=== PATIENT | male | born 1955 | race Caucasian/White ===

== ENCOUNTER 2017-04-27 11:51 | Emergency (ER) | payer OTHER ==
[2017-04-27 12:05] VITALS: O2SAT 96
--- NOTE | 2017-04-27 12:32 | CPEKG ---
Heart Rate: 67 RR Interval: 896 P-R Interval: 184 QRSD Interval: 104 QT Interval: 424 QTC Interval: 448 P [place]: 75 QRS [place]: 103 T Wave [place]: 63 EKG Severity - ABNORMAL ECG - EKG Impression: SINUS RHYTHM EKG Impression: LEFT POSTERIOR FASCICULAR BLOCK Electronically Signed By: Marimar Mercedes 27-Apr-2017 21:43:05
[2017-04-27 13:33] LABS: % IMMATURE GRANULYOCYTES 0.4 % (0.0-1.1); ABSOLUTE IMMATURE GRANULOCYTES 0.05 10^3/uL (0.00-0.10); ADD DIFF? NO; ADD MORPH? NO; ADD SCAN? NO; ATYPICAL LYMPHOCYTE FLAG 0 (0-99); FRAGMENT RBC FLAG 0 (0-99); HEMATOCRIT 49.9 % (40.0-51.0); HEMOGLOBIN 16.5 g/dL (13.7-17.5); LEFT SHIFT FLG 0 (0-99); LIPEMIA HEMOLYSIS FLAG 80 (0-99); MEAN CELL HEMOGLOBIN 27.7 pg (27.9-34.1); MEAN CELL HEMOGLOBIN CONCENTR. 33.1 g/dL (32.4-36.7); MEAN CELL VOLUME 83.7 fL (81.5-99.8); MEAN PLATELET VOLUME 10.2 fL (8.7-11.7); PLATELET CLUMPS FLAG 0 (0-99); PLATELET COUNT 248 10^3/uL (150-400); RED BLOOD CELL COUNT 5.96 10^6/uL (4.40-6.38)
[2017-04-27 13:37] LABS: ANION GAP 17 mEq/L (8-16); CALCIUM 10.2 mg/dL (8.5-10.4); CARBON DIOXIDE 22 mEq/l (22-31); CHLORIDE 101 mEq/L (97-110); GLOMERULAR FILTRATION RATE > 60; GLUCOSE 139 mg/dL (70-100); POTASSIUM 4.2 mEq/L (3.5-5.2); SODIUM 140 mEq/L (134-144)
--- NOTE | 2017-04-27 13:43 | EDPHY ---
H & P Time Seen by Provider: 04/27/17 13:25 HPI/ROS: CHIEF COMPLAINT: Hypertension HISTORY OF PRESENT ILLNESS: The patient is a 61-year-old male with history of hypertension who presents with elevated blood pressure. He takes lisinopril 5 mg orally daily. Onset elevated blood pressure this morning. This morning he took 5mg Lisinopril as well as Hydrochlorothiazide 50mg orally (not prescribed to him) but his blood pressure did not improve, he reports 220 systolic BP. Patient is now out of Lisinopril and is unable to get another prescription for two days. Of note, the patient has been taking ephedrine daily for the past 3 days. He states this has caused his blood pressure to increase in the past. He denies chest pain, lightheadedness, or headache. REVIEW OF SYSTEMS: A comprehensive 10 point review of systems is otherwise negative aside from elements mentioned in the history of present illness. Past Medical/Surgical History: Bipolar disorder, Depression, Anxiety, Hypertension Social History: Marijuana use. Non-cigarette smoker. Smoking Status: Never smoked Physical Exam: General Appearance: Alert, pleasant Eyes: Pupils equal and round, no conjunctival pallor or injection ENT, Mouth: Mucous membranes moist Neck: Normal inspection Respiratory: Lungs are clear to auscultation Cardiovascular: Regular rate and rhythm Gastrointestinal: Abdomen is soft and non-tender Neurological: A&O, nonfocal, normal gait Skin: Warm and dry, no rash Extremities: Nontender, no pedal edema Psychiatric: Mood and affect normal Constitutional: Initial Vital Signs Temperature (C) 36.9 C 04/27/17 12:02 Heart Rate 75 04/27/17 12:02 Respiratory Rate 18 04/27/17 12:02 Blood Pressure 222/172 H 04/27/17 12:02 O2 Sat (%) 96 04/27/17 12:02 O2 Delivery Mode Room Air Allergies/Adverse Reactions: No Known Allergies Allergy (Verified 04/27/17 11:59) Home Medications: Medication Instructions Recorded Citalopram 04/27/17 Lisinopril 04/27/17 Lisinopril 10 mg PO DAILY #30 tablet 04/27/17 traMADol 04/27/17 Medical Decision Making ED Course/Re-evaluation: Patient with history of hypertension, on Lisinopril, presents with elevated blood pressure. No evidence of hypertensive emergency or urgency. Blood pressure in the ED is 199/117. 1422: BP: 185/115 1500: I spoke to Dr. Washburn, the patient's PCP. He recommends increasing the patient's Lisinopril to10mg daily and have the patient followup in the office. 1505: I discussed findings with the patient. Lisinopril 5 mg orally given. He will follow up with his PCP. Differential Diagnosis: Differential diagnosis includes though is not limited to intracranial hemorrhage , acute renal failure, pulmonary edema. - Data Points Laboratory Results: Laboratory Results 04/27/17 12:40 04/27/17 12:40 Medications Given: Discontinued Medications Lisinopril (Zestril) 5 mg PO EDNOW ONE Stop: 04/27/17 15:03 Last Admin: 04/27/17 15:21 Dose: 5 mg Departure - Departure Disposition: Home, Routine, Self-Care Clinical Impression: Hypertension Qualifiers: Hypertension type: essential hypertension Qualified Code(s): I10 - Essential ( primary) hypertension Condition: Good Instructions: Hypertension (ED) Additional Instructions: Please take Lisinopril as prescribed. Followup with your primary care physician this week for further evaluation. Return to the Emergency Department with chest pain, severe headache, lightheadedness, or worsening concerns. Referrals: Severiano Washburn MD [Primary Care Provider] - As per Instructions Prescriptions: Lisinopril 10 mg PO DAILY #30 tablet Report Scribed for: Marimar Mercedes Report Scribed by: Breanna Merritt Date of Report: 04/27/17 Time of Report: 13:43 Physician Review and Approval Statement: 04/27/17 13:43 Portions of this note were transcribed by a medical apparatus model maker. I personally performed the history, physical exam, and medical decision-making; and confirmed the accuracy of the information in the transcribed note.
[2017-04-27] MEDS ORDERED: LISINOPRIL 20 MG TAB PO ONE (15:02)
[2017-04-27 15:28] VITALS: BP 188/107; PULSE 69; RESP 19; TEMP 98.6
== END 2017-04-27 15:27 | disposition home or self-care (01) ==
DX: I10 Essential (primary) hypertension (principal)

== ENCOUNTER → 2017-07-09 | Outpatient (CLI) | payer OTHER | LOC: BHFA 14:45 | PROVIDERS: ATTEND Internal Medicine Cardiovascular Disease | DX: R07.9 Chest pain, unspecified (principal); R00.2 Palpitations ==

== ENCOUNTER → 2018-05-05 | Outpatient (CLI) | payer OTHER | LOC: FIMAGING 09:26 | PROVIDERS: ATTEND Internal Medicine Gastroenterology | DX: K80.20 Calculus of gallbladder without cholecystitis without obstruction (principal); K83.8 Other specified diseases of biliary tract; K76.0 Fatty (change of) liver, not elsewhere classified; B18.1 Chronic viral hepatitis B without delta-agent ==

== ENCOUNTER 2018-06-17 06:38 | Day surgery (SDC) | payer OTHER ==
[~2018-06-17 06:38] MED LIST: cefOXitin SODIUM 2 GM in NS 100 ML IV ONE
[2018-06-17] MEDS ORDERED: LR 1,000 ML IV ONE (07:34)
[2018-06-17] MEDS ORDERED: LIDOCAINE 1% 2 ML INJ ID PRN (07:34)
--- NOTE | 2018-06-17 07:38 | PDHPUP ---
History & Physical Update H&P update statement: This history and physical update is based on an assessment of the patient which was completed after admission or registration (within 24 hours), but prior to the surgery/procedure. H&P update: H&P reviewed & patient examined, no change in patient's condition since H&P completed
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
[2018-06-17] MEDS ORDERED: MIDAZOLAM 2 MG/2 ML VIAL IVP ONE (09:04)
[2018-06-17] MEDS ORDERED: MIDAZOLAM 2 MG/2 ML VIAL ONE ×2 (09:13→10:33)
[2018-06-17] MEDS ORDERED: PROPOFOL 200 MG/20 ML VIAL ONE ×2 (09:14→10:36)
[2018-06-17] MEDS ORDERED: KETOROLAC 30 MG/1 ML SDV ONE (09:14)
[2018-06-17] MEDS ORDERED: ROCURONIUM 50 MG/5 ML VIAL ONE (09:14)
[2018-06-17] MEDS ORDERED: fentaNYL 100 MCG/2 ML INJ ONE ×4 (09:14→10:57)
[2018-06-17] MEDS ORDERED: ONDANSETRON 4 MG/2 ML VIAL ONE (09:14)
[2018-06-17] MEDS ORDERED: BUPIVACAINE 0.5% 30 ML SDV ONE (09:15)
[2018-06-17] MEDS ORDERED: ceFAZolin 1 GM/5 ML SYR ONE (09:16)
[2018-06-17] MEDS ORDERED: HEPARIN 1000 UNIT/1 ML MDV ONE (09:16)
--- NOTE | 2018-06-17 10:45 | POSTOPPROG ---
Post Op Note Date of Operation: 06/17/18 Surgeon: German Musa Client Support Consultant: Nai Anesthesiologist: Eugene Anesthesia: GET(General Endotracheal) Pre-op Diagnosis: Cholelithiasis Post-op Diagnosis: same Indication: same, pain Procedure: Lap kiko, liver wedge bx Findings: Chronically inflammed gallbladder, liver cirrhosis, clear bile Inf/Abcess present in the surg proc area at time of surgery?: No Depth: Organ Space EBL: Minimal Specimen(s): Gallbladder Liver wedge biopsy
[2018-06-17] MEDS ORDERED: HYDROmorphONE/DILAUDID 2 MG/ML INJ IVP PRN (10:46)
[2018-06-17] MEDS ORDERED: ONDANSETRON 4 MG/2 ML VIAL IVP PRN (10:46)
[2018-06-17] MEDS ORDERED: NALOXONE HCL 0.4 MG/ML INJ IVP PRN (10:46)
[2018-06-17] MEDS ORDERED: ALBUTEROL 3 ML DEYVIAL IH PRN (10:46)
--- NOTE | 2018-06-17 10:46 | POSTANESTH ---
Post Anesthetic Evaluation Cardiovascular Status: Normal, Stable Respiratory Status: Normal, Stable Level of Consciousness/Mental Status: Moderately Sleepy Pain Control: Adequate, Prn Tx Ordered Nausea/Vomiting Control: Adequate, Prn Tx Ordered Complications Possibly Related to Anesthesia: None Noted
[2018-06-17] MEDS: fentaNYL 100 MCG/2 ML INJ IVP PRN ×2 (10:58→11:13)
[2018-06-17] MEDS ORDERED: HYDROmorphONE/DILAUDID 2 MG/ML INJ ONE (11:42)
[2018-06-17 12:16] VITALS: BP 155/91
--- NOTE | 2018-06-17 15:33 | GOP ---
DATE OF OPERATION: 06/17/2018 SURGEON: German Musa MD PROGRESS CLERK: Calli Trimble NP. ANESTHESIOLOGIST: Dr. Knight. PREOPERATIVE DIAGNOSIS: Cholelithiasis. POSTOPERATIVE DIAGNOSIS: Cholelithiasis, chronic cholecystitis and cirrhosis. PROCEDURE PERFORMED: Lap kiko and wedge liver biopsy FINDINGS: The patient was found to have a markedly inflamed thickened gallbladder with a single stone obstructing the neck of the gallbladder. He essentially had a hydrops of the gallbladder, it was completely obscured and covered with dense adhesions. Ducts were small. He had significant cirrhosis possibly secondary to his hepatitis-B ESTIMATED BLOOD LOSS: Negligible. DESCRIPTION OF PROCEDURE: The patient was taken to the operating room where he received a satisfactory general endotracheal anesthesia by Dr. Knight, placed in supine position, prepped and draped in usual sterile fashion. A periumbilical incision was made. A Veress needle inserted. Pneumoperitoneum was established. Trocar was introduced. Laparoscope introduced. Good visualization was obtained. Three other trocars were placed in the upper abdomen under direct vision. The gallbladder was elevated up, adhesions were taken down with electrocautery until the entire gallbladder could be exposed. This was quite difficult, tedious dissection as these were quite dense adhesions to an inflamed gallbladder. The cystic triangle was carefully dissected free. Cystic duct and cystic artery were isolated. A good clear view was achieved. Both structures were multiply hemoclipped and divided with care to avoid injury to the common bile duct. Peritoneum of the gallbladder was incised. The gallbladder was dissected free in the bed and hepatic fossa and extracted through the upper midline port site. The dissection was quite difficult with the chronic and subacute inflammation. Eventually, the gallbladder could be removed intact and extracted through the upper midline port site, it was sent to Pathology. The wound was copiously irrigated. Hemostasis was assured. A wedge biopsy was then done of the right lobe of the liver because of obvious cirrhosis. Hemostasis obtained with electrocautery and trocar was then removed under direct vision. Trocar sites were closed with 0 Vicryl for the fascia, 4-0 Monocryl subcuticular stitch for the skin. All layers infiltrated with 0.5% Marcaine. COMPLICATIONS: None. Taken to recovery room in good condition. /[id number]/MODL MTDD
== END 2018-06-17 12:16 | disposition home or self-care (01) ==
LOC: FSGY 06:38
PROVIDERS: ATTEND Surgery
PROC: 0FB14ZX Excision of Right Lobe Liver, Percutaneous Endoscopic Approach, Diagnostic (ICD-10-PCS; principal; 2018-06-17 08:30)
PROC: 0FT44ZZ Resection of Gallbladder, Percutaneous Endoscopic Approach (ICD-10-PCS; principal; 2018-06-17 08:30)
DX: K80.10 Calculus of gallbladder with chronic cholecystitis without obstruction (principal); K74.60 Unspecified cirrhosis of liver; I10 Essential (primary) hypertension; I27.20 Pulmonary hypertension, unspecified; I71.2 Thoracic aortic aneurysm, without rupture; Z91.81 History of falling
CPT/HCPCS: J0694; J1170; J1885; J2250; J2405; J2704; J3010

== ENCOUNTER → 2018-06-24 | Outpatient (CLI) | payer OTHER ==
[~2018-06-24] MED LIST changes: +IOPAMIDOL (ISOVUE 370) 100 ML BTL IV ONE; -cefOXitin SODIUM 2 GM in NS 100 ML IV ONE
== END ==
LOC: FIMAGING 14:42
PROVIDERS: ATTEND Surgery
DX: R07.89 Other chest pain (principal); R89.9 Unspecified abnormal finding in specimens from other organs, systems and tissues
CPT/HCPCS: 71275; Q9967

== ENCOUNTER → 2018-07-19 | Outpatient (CLI) | payer OTHER ==
[~2018-07-19] MED LIST changes: -IOPAMIDOL (ISOVUE 370) 100 ML BTL IV ONE; +IOPAMIDOL (ISOVUE-300) 100 ML BTL ONE
== END | disposition home or self-care (01) ==
LOC: FIMAGING 15:10
PROVIDERS: ATTEND Surgery
DX: R11.10 Vomiting, unspecified (principal)
CPT/HCPCS: Q9967

== ENCOUNTER → 2018-07-22 | Outpatient (CLI) | payer OTHER | LOC: FIMAGING 10:00 | PROVIDERS: ATTEND Surgery | DX: K56.609 Unspecified intestinal obstruction, unspecified as to partial versus complete obstruction (principal); R18.8 Other ascites; J90 Pleural effusion, not elsewhere classified; I25.10 Atherosclerotic heart disease of native coronary artery without angina pectoris ==

== ENCOUNTER → 2018-07-27 | Outpatient (CLI) | payer OTHER | LOC: FIMAGING 16:06 | PROVIDERS: ATTEND Surgery | DX: J90 Pleural effusion, not elsewhere classified (principal); R50.9 Fever, unspecified ==

== ENCOUNTER → 2018-07-29 | Outpatient (CLI) | payer OTHER | LOC: FIMAGING 09:12 | PROVIDERS: ATTEND Surgery | DX: R18.8 Other ascites (principal) | CPT/HCPCS: 78226; A9537 ==

== ENCOUNTER → 2018-09-21 | Outpatient (CLI) | payer OTHER | LOC: FIMAGING 10:21 | PROVIDERS: ATTEND Internal Medicine | DX: K74.69 Other cirrhosis of liver (principal) ==

== ENCOUNTER → 2019-02-03 | Outpatient (CLI) | payer OTHER | LOC: FIMAGING 14:11 | PROVIDERS: ATTEND Internal Medicine Pulmonary Disease | DX: R06.00 Dyspnea, unspecified (principal); R05 Cough; Z87.891 Personal history of nicotine dependence | CPT/HCPCS: 87517-90 ==